=== PATIENT | male | born 1980 | race Caucasian/White ===

== ENCOUNTER 2023-12-06 22:10 | Emergency (ER) | payer SELFPAY ==
[~2023-12-06] VITALS: Ht 167.6 cm; Wt 72.6 kg
[2023-12-06 22:16] VITALS: BP 142/88; PULSE 92; RESP 16; TEMP 98.2; O2SAT 97
[2023-12-06] MEDS: BACITRACIN OINT 500 UNITS/GM PKT TP ONE (22:40)
== END 2023-12-06 22:44 ==
LOC: MED 22:10
DX: S80.212A Abrasion, left knee, initial encounter (principal); Z02.89 Encounter for other administrative examinations; X58.XXXA Exposure to other specified factors, initial encounter; Y92.89 Other specified places as the place of occurrence of the external cause; Y93.89 Activity, other specified; Y99.8 Other external cause status
CPT/HCPCS: 99283